=== PATIENT | male | born 1995 | race Caucasian/White ===

== ENCOUNTER 2018-07-18 04:13 | Emergency (ER) | payer OTHER ==
[2018-07-18] MEDS ORDERED: ALUM & MAG HYDROX-SIMETHICONE 30 ML UD ONE (04:28)
[2018-07-18] MEDS ORDERED: LIDOCAINE HCL 2% (MOUTH-THROAT) 15 ML UD ONE (04:28)
[2018-07-18] MEDS: ALUM & MAG HYDROX-SIMETHICONE 30 ML, LIDOCAINE VISCOUS 2% 15 ML PO ONE ×2 (04:30)
--- NOTE | 2018-07-18 04:34 | RAD ---
EXAM DESCRIPTION: AP view of the chest CLINICAL HISTORY:23 years Male, chest pain Comparison: None FINDINGS: No focal lung consolidation. No pleural effusion. No pneumothorax. Cardiac and mediastinal silhouette is unremarkable. No acute osseous abnormality. Soft tissues are unremarkable. IMPRESSION: No acute findings. No focal lung consolidation. Electronically signed by: Jacob Roper DO 07/18/2018 4:33 AM BILLING COORDINATOR
--- NOTE | 2018-07-18 04:55 | ED.PDOC ---
History of Present Illness - General Chief Complaint: Chest Pain/LA Stated Complaint: CP since 1900 yesterday Time Seen by Provider: 07/18/18 04:46 Source: patient Exam Limitations: no limitations - History of Present Illness Initial Comments: Pt has had substernal chest pain since 7pm yesterday that is pleuritic and worse lying supine Pt has had a loss of appetite and mild diarrhea x 1-2 days. No hx of reflux problems Timing/Duration: 7-24 hours Severity/Quality: severe, sharp Location: substernal Chest Pain Radiation: no radiation Activities at Onset: none Prior Chest Pain/Cardiac Workup: no prior chest pain Improving Factors: nothing Worsening Factors: other - pleuritic pain Nitro Today/Relief: no nitro taken today Aspirin Treatment Today: no aspirin today Associated Symptoms: nausea/vomiting Allergies/Adverse Reactions: Allergies NO KNOWN ALLERGY Allergy (Verified 07/18/18 04:22) Home Medications: Ambulatory Orders Hyoscyamine Sulfate [Levsin] 0.125 mg PO Q4HR PRN #20 tab 07/18/18 Ondansetron [Zofran Odt] 4 mg PO Q4HR PRN #20 tab 07/18/18 Pantoprazole Sodium [Protonix] 20 mg PO ACBK #14 tablet 07/18/18 Review of Systems - Review of Systems Constitutional: Denies: diaphoresis, weakness EENTM: Denies: no symptoms reported Respiratory: States: short of breath. Denies: cough, orthopnea Cardiology: States: chest pain. Denies: edema Gastrointestinal/Abdominal: States: diarrhea, nausea. Denies: abdominal pain, vomiting Genitourinary: States: no symptoms reported Musculoskeletal: States: no symptoms reported Skin: States: no symptoms reported Neurological: States: no symptoms reported Endocrine: States: no symptoms reported Hematologic/Lymphatic: States: no symptoms reported Past Medical History (General) - Patient Medical History Hx Seizures: No Hx Stroke: No Hx Dementia: No Hx Asthma: No Hx of COPD: No Hx Cardiac Disorders: No Hx Congestive Heart Failure: No Hx Pacemaker: No Hx Hypertension: No Hx Thyroid Disease: No Hx Diabetes: No Hx Gastroesophageal Reflux: No Hx Renal Disease: No Hx Cancer: No Hx of HIV: No Hx Hepatitis C: No Hx MRSA: No Surgical History: no surgical history - Vaccination History Hx Tetanus, Diphtheria Vaccination: No Hx Influenza Vaccination: No - Social History Hx Tobacco Use: Yes Hx Alcohol Use: Yes - occasional Family Medical History - Family History Mother Family History: Unknown Physical Exam - Physical Exam General Appearance: Alert, Anxious Eyes, Ears, Nose, Throat Exam: PERRL/EOMI Neck: supple, normal inspection Respiratory: lungs clear, normal breath sounds Cardiovascular/Chest: normal peripheral pulses, regular rate, rhythm, no edema Gastrointestinal/Abdominal: soft, tenderness - in epigastrium Extremity: normal inspection, no pedal edema Neurologic: alert, normal mood/affect, oriented x 3 Skin Exam: normal color, warm/dry Lymphatic: no adenopathy Progress - EKG/XRAY/CT EKG: Sinus, Tachy, no ST T wave changes Comments: rate 116, DC 150, QRS 90 Departure - Departure Clinical Impression: Chest pain Qualifiers: Chest pain type: unspecified Qualified Code(s): R07.9 - Chest pain, unspecified Gastroesophageal reflux disease Qualifiers: Esophagitis presence: with esophagitis Qualified Code(s): K21.0 - Gastro- esophageal reflux disease with esophagitis Disposition: Discharge to Home or Self Care Departure Forms: ED Discharge - Pt. Copy, Patient Portal Self Enrollment Instructions: DI for Chest Pain Prescriptions: Hyoscyamine Sulfate [Levsin] 0.125 mg PO Q4HR PRN #20 tab PRN Reason: Moderate Pain Ondansetron [Zofran Odt] 4 mg PO Q4HR PRN #20 tab PRN Reason: Nausea Pantoprazole Sodium [Protonix] 20 mg PO ACBK #14 tablet Home Medications: Ambulatory Orders Hyoscyamine Sulfate [Levsin] 0.125 mg PO Q4HR PRN #20 tab 07/18/18 Ondansetron [Zofran Odt] 4 mg PO Q4HR PRN #20 tab 07/18/18 Pantoprazole Sodium [Protonix] 20 mg PO ACBK #14 tablet 07/18/18
[2018-07-18] MEDS: DICYCLOMINE HCL 20 MG TAB PO ONE (05:04)
[2018-07-18] MEDS: PANTOPRAZOLE SODIUM IV 40 MG VIAL IV ONE (05:04)
[2018-07-18] MEDS ORDERED: MORPHINE SULFATE INJ 10 MG/ML VIAL ONE (06:21)
[2018-07-18] MEDS: ONDANSETRON INJ 4 MG/2 ML VIAL IV ONE (06:24)
[2018-07-18] MEDS: MORPHINE SULFATE INJ 10 MG/ML VIAL IV ONE (06:24)
[2018-07-18 06:53] VITALS: BP 138/90; TEMP 98.9; O2SAT 98
== END 2018-07-18 06:57 | disposition home or self-care (01) ==
LOC: ER 04:13
DX: R07.9 Chest pain, unspecified (principal); K21.0 Gastro-esophageal reflux disease with esophagitis; Z87.891 Personal history of nicotine dependence
CPT/HCPCS: 71045; 80048; 80076; 82550; 82553; 83880; 84484; 85025; 85379; 85610; 85730; 93005; J2270; J2405